=== PATIENT | female | born 1960 | race Caucasian/White ===

== ENCOUNTER 2016-11-28 04:13 | Inpatient (IN) | payer OTHER ==
[~2016-11-28] VITALS: Ht 165.1 cm; Wt 46.2 kg
[2016-11-28 04:21] VITALS: BP 106/65; PULSE 75; RESP 16; TEMP 98.2; O2SAT 98
--- NOTE | 2016-11-28 04:28 | PD ---
HPI Chief Complaint: Psychiatric Symptoms Time Seen by Provider: 04:19 Travel History International Travel<30 days: No Contact w/Intl Traveler<30days: No Traveled to known affect area: No History of Present Illness HPI PT WAS BRAY ACTED BY POLICE AND BROUGHT IN FOR MEDICAL CLEARANCE...PT WAS RUNNING AROUND ON STREETS NAKED AND SCREAMING. PATIENT STATES THAT SHE USED JAYDE BREAD MAN (NAME SHE GAVE WHEN ASKED WHAT DRUG SHE USED) PFSH Past Medical History Immunizations Current: Yes Tetanus Vaccination: Unknown Influenza Vaccination: No Social History Alcohol Use: Yes Tobacco Use: Yes Substance Use: Yes Allergies-Medications (Allergen,Severity, Reaction): Coded Allergies: UNOBTAINABLE (Unverified , 11/28/16) Reported Meds & Prescriptions Reported Meds & Active Scripts Active Active Prescriptions or Reported Medications Unobtainable Review of Systems ROS Limitations: Intoxication, Altered Mental Status Physical Exam Exam Limitations: Intoxication, Altered Mental Status Narrative GENERAL: SKIN: Warm and dry. HEAD: Atraumatic. Normocephalic. EYES: Pupils equal and round. No scleral icterus. No injection or drainage. ENT: No nasal bleeding or discharge. Mucous membranes pink and moist. NECK: Trachea midline. No JVD. CARDIOVASCULAR: Regular rate and rhythm. RESPIRATORY: No accessory muscle use. Clear to auscultation. Breath sounds equal bilaterally. GASTROINTESTINAL: Abdomen soft, non-tender, nondistended. Hepatic and splenic margins not palpable. MUSCULOSKELETAL: Extremities without clubbing, cyanosis, or edema. No obvious deformities. NEUROLOGICAL: Awake and alert. No obvious cranial nerve deficits. Motor grossly within normal limits. Five out of 5 muscle strength in the arms and legs. Normal speech. PSYCHIATRIC: PRESSURED SPEECH, FLIGHT OF IDEAS Data Data Last Documented VS Vital Signs Date Time Temp Pulse Resp B/P Pulse Ox O2 Delivery O2 Flow Rate FiO2 11/28/16 04:21 98.2 75 16 106/65 98 Orders Complete Blood Count With Diff (11/28/16 04:20) Comprehensive Metabolic Panel (11/28/16 04:20) Thyroid Stimulating Hormone (11/28/16 04:20) Urinalysis - C+S If Indicated (11/28/16 04:20) Ed Urine Pregnancytest Poc (11/28/16 04:20) Psych Screen (11/28/16 04:20) Drug Screen, Random Urine (11/28/16 04:20) Alcohol (Ethanol) (11/28/16 04:20) Salicylates (Aspirin) (11/28/16 04:20) Tylenol (Acetaminophen) (11/28/16 04:20) Urine Culture (11/28/16 04:30) Labs Laboratory Tests Test 11/28/16 04:30 White Blood Count 4.6 TH/MM3 Red Blood Count 3.96 MIL/MM3 Hemoglobin 11.9 GM/DL Hematocrit 35.3 % Mean Corpuscular Volume 89.1 FL Mean Corpuscular Hemoglobin 30.2 PG Mean Corpuscular Hemoglobin 33.8 % Concent Red Cell Distribution Width 13.5 % Platelet Count 343 TH/MM3 Mean Platelet Volume 7.7 FL Neutrophils (%) (Auto) 52.4 % Lymphocytes (%) (Auto) 34.8 % Monocytes (%) (Auto) 7.6 % Eosinophils (%) (Auto) 4.5 % Basophils (%) (Auto) 0.7 % Neutrophils # (Auto) 2.4 TH/MM3 Lymphocytes # (Auto) 1.6 TH/MM3 Monocytes # (Auto) 0.4 TH/MM3 Eosinophils # (Auto) 0.2 TH/MM3 Basophils # (Auto) 0.0 TH/MM3 CBC Comment DIFF FINAL Differential Comment Urine Color LIGHT-YELLOW Urine Turbidity CLEAR Urine pH 6.0 Urine Specific [place] 1.007 Urine Protein NEG mg/dL Urine Glucose (UA) NEG mg/dL Urine Ketones NEG mg/dL Urine Occult Blood NEG Urine Nitrite NEG Urine Bilirubin NEG Urine Urobilinogen LESS THAN 2.0 MG/DL Urine Leukocyte Esterase MOD Urine WBC 9 /hpf Urine Transitional Epithelial <1 /hpf Cells Microscopic Urinalysis Comment CULTURE INDICATED Sodium Level 142 MEQ/L Potassium Level 3.5 MEQ/L Chloride Level 107 MEQ/L Carbon Dioxide Level 27.2 MEQ/L Anion Gap 8 MEQ/L Blood Urea Nitrogen 18 MG/DL Creatinine 1.21 MG/DL Estimat Glomerular Filtration 38 ML/MIN Rate Random Glucose 94 MG/DL Calcium Level 9.2 MG/DL Total Bilirubin 0.5 MG/DL Aspartate Amino Transf 35 U/L (AST/SGOT) Alanine Aminotransferase 42 U/L (ALT/SGPT) Alkaline Phosphatase 69 U/L Total Protein 7.8 GM/DL Albumin 3.8 GM/DL Thyroid Stimulating Hormone 88.100 uIU/ML 3rd Gen Salicylates Level 2.3 MG/DL Urine Opiates Screen NEG Acetaminophen Level LESS THAN 2.0 MCG/ML Urine Barbiturates Screen NEG Urine Amphetamines Screen NEG Urine Benzodiazepines Screen NEG Urine Cocaine Screen POS Urine Cannabinoids Screen POS Ethyl Alcohol Level LESS THAN 3 MG/DL MDM Medical Decision Making Medical Screen Exam Complete: Yes Emergency Medical Condition: Yes Medical Record Reviewed: Yes Differential Diagnosis HYPOGLYCEMIA V ELECTROLYTE ABNL V LIVER DZ V DRUG INTOX Narrative Course PATIENT WAS ACTING ERRATICALLY DUE TO COCAINE ABUSE, TODAY SHE WAS ALSO FOUND TO HAVE A UTI WELL AN ABNL TSH SCREENING TESTS SO SHE WILL NEED FORMAL OUTPATIENT CONFIRMATORY TESTING AT A LATER TIME. Diagnosis Primary Impression: Medical clearance for psychiatric admission Additional Impressions: UTI COCAINE ABUSE SUSPECTED HYPOTHYROIDISM Additional Instructions: AFTER YOU GET SEEN BY PSYCHIATRIST, MAKE APPOINTMENT WITH YOUR PRIMARY CARE DOCTOR TO FURTHER EVALUATE YOUR THYROID AN OUTPATIENT Scripts Unable to Obtain Active Prescriptions or Reported Meds Condition: Jay Guillen MD Nov 28, 2016 04:28
[2016-11-28 04:38] LABS: AUTOMATED NEUTROPHIL # 2.4 TH/MM3 (1.8-7.7); BASOPHIL % 0.7 % (0.0-2.0); EOSINOPHIL # 0.2 TH/MM3 (0-0.4); EOSINOPHIL % 4.5 % (0.0-4.0); HEMATOCRIT 35.3 % (35.0-46.0); HEMO FLAGS DIFF FINAL; LYMPH % 34.8 % (9.0-44.0); LYMPHOCYTE # 1.6 TH/MM3 (1.0-4.8); MEAN CELL VOLUME 89.1 FL (80.0-100.0); MEAN CORPUSCULAR HEMOGLOBIN 30.2 PG (27.0-34.0); MEAN CORPUSCULAR HGB CONC 33.8 % (32.0-36.0); MONO % 7.6 % (0.0-8.0); NEUT % 52.4 % (16.0-70.0); PLATELET COUNT 343 TH/MM3 (150-450); RED BLOOD COUNT 3.96 MIL/MM3 (4.00-5.30); RED CELL DISTRIBUTION WIDTH 13.5 % (11.6-17.2); WHITE BLOOD COUNT 4.6 TH/MM3 (4.0-11.0)
[2016-11-28 04:43] LABS: BLOOD, URINE NEG (NEG); GLUCOSE,URINE NEG (NEG); KETONE, URINE NEG (NEG); NITRITE,URINE NEG (NEG); TRANSITIONAL EPI CELLS, URINE <1 /hpf; URINE COLOR LIGHT-YELLOW (YELLW/STRAW)
[2016-11-28 04:46] LABS: AMPHETAMINE, URINE NEG (NEG); BARBITURATES, URINE NEG (NEG); COCAINE, URINE POS (NEG)
[2016-11-28 04:54] LABS: COMMENT (UR) CULTURE INDICATED; CULTURE IF INDICATED CULTURE INDICATED
[2016-11-28 05:05] LABS: ALT (GPT) 42 U/L (10-53); ANION GAP 8 MEQ/L (5-15); AST (GOT) 35 U/L (15-37); BICARBONATE 27.2 MEQ/L (21.0-32.0); BLOOD UREA NITROGEN 18 MG/DL (7-18); CHLORIDE 107 MEQ/L (98-107); GLOMERULAR FILTRATION RATE 38 ML/MIN (>89); POTASSIUM 3.5 MEQ/L (3.5-5.1); SODIUM (NA) 142 MEQ/L (136-145)
[2016-11-28 05:15] LABS: ALKALINE PHOSPHATASE 69 U/L (45-117); TOTAL BILIRUBIN ADULT 0.5 MG/DL (0.2-1.0)
[2016-11-28 05:16] LABS: ACETAMINOPHEN LESS THAN 2.0 MCG/ML (10.0-30.0)
[2016-11-28] MEDS ORDERED: LIDOCAINE HCL 1% PF 30 ML VIAL XX ONE (05:30)
[2016-11-28 06:38] VITALS: BP 127/62; PULSE 66; RESP 18
[2016-11-28 10:16] VITALS: BP 108/68; PULSE 80; RESP 18; O2SAT 98
[2016-11-28] MEDS ORDERED: ZIPRASIDONE MESYLATE 20 MG VIAL IM PRN ×3 (12:00→13:30)
[2016-11-28] MEDS ORDERED: diphenhydrAMINE HCL 50 MG/ML VIAL IM ONE (12:15)
[2016-11-28 13:00] VITALS: BP 131/69; PULSE 66; RESP 16; TEMP 98.6; O2SAT 98
[2016-11-28] MEDS ORDERED: LORazepam 2 MG/ML VIAL IM ONE (13:00)
[2016-11-28] MEDS ORDERED: LORazepam 0.5 MG TAB PO PRN (13:45)
[2016-11-28] MEDS ORDERED: diphenhydrAMINE HCL 50 MG/ML VIAL IM PRN (13:45)
[2016-11-28] MEDS ORDERED: ALUMINUM/MAGNESIUM/SIMETH 30 ML CUP PO PRN (13:45)
[2016-11-28] MEDS ORDERED: MAGNESIUM HYDROXIDE SUSP 30 ML CUP PO PRN (13:45)
[2016-11-28] MEDS ORDERED: ACETAMINOPHEN 325 MG TAB PO PRN (13:45)
[2016-11-28] MEDS ORDERED: LORazepam 2 MG/ML VIAL IM PRN ×2 (13:45)
[2016-11-28] MEDS ORDERED: TOFR50TA PO (13:48)
[2016-11-28] MEDS ORDERED: HYDR100C PO (13:48)
[2016-11-28] MEDS ORDERED: PERP2TAB18 PO (13:49)
[2016-11-28] MEDS ORDERED: LEVOTHYROXINE SODIUM 100 MCG TAB PO ONE (18:15)
[2016-11-28 18:25] VITALS: BP 118/56; PULSE 56; RESP 17; TEMP 97.6; O2SAT 98
[2016-11-28 18:54] LABS: FREE T3 1.86 PG/ML (2.18-3.98); FREE T4 0.7 NG/DL (0.76-1.46)
[2016-11-29] MEDS ORDERED: LORazepam 2 MG/ML VIAL IM ONE ×2 (01:10→11:00)
[2016-11-29] MEDS ORDERED: diphenhydrAMINE HCL 50 MG/ML VIAL IM ONE ×2 (01:10→11:00)
[2016-11-29] MEDS ORDERED: LORazepam 2 MG/ML VIAL ONE ×2 (01:10→10:02)
[2016-11-29] MEDS ORDERED: ZIPRASIDONE MESYLATE 20 MG VIAL IM ONE ×2 (01:10→01:12)
[2016-11-29] MEDS ORDERED: diphenhydrAMINE HCL 50 MG/ML VIAL ONE ×2 (01:11→10:02)
[2016-11-29 02:11] VITALS: BP 118/56; PULSE 56; RESP 17; TEMP 97.6; O2SAT 98
[2016-11-29 05:46] VITALS: BP 115/77; PULSE 54; RESP 16; TEMP 97.2; O2SAT 96
[2016-11-29] MEDS ORDERED: LEVOTHYROXINE SODIUM 100 MCG TAB PO SCH (06:00)
[2016-11-29] MEDS ORDERED: HALOPERIDOL LACTATE 5 MG/ML AMP ONE (10:02)
[2016-11-29] MEDS ORDERED: HALOPERIDOL LACTATE 5 MG/ML AMP IM ONE (11:00)
--- NOTE | 2016-11-29 11:54 | PD.CONS ---
HPI Service [facility] Consult Requested By Psychiatry team Reason for Consult Hypothyroidism Primary Care Physician Unknown Diagnoses: History of Present Illness Written by Julia Lugo, acting as scribe for Dr. Chairez on 11/29/16 at 11:36. This note was transcribed by viji HUMPHREY. I, Dr. Corrie Chairez personally performed the history, physical exam, and medical decision making; and confirmed the accuracy of the information in the transcribed note. Authenticated by Dr. Corrie Chairez on 11/29/16 at 11:36. Per review of records, Patient is a female who came in as a [place] act by police secondary to she was running around on the streets naked and screaming and states she use gingerbread man when asked what drug she used. Patient was found to be acting erratically due to cocaine abuse and reported to have urinary tract infection and abnormal TSH. Recommended to have a formal outpatient confirmatory testing for her TSH. She is now admitted to inpatient psychiatry unit for further evaluation. We are consulted for medical management. Patient seen and examined today. She reports her real name is "Nella Medellin", she is 55 years old, her date of is 03/22/1961. Then patient started to scream and cry stating "my house is can he get vandalized because I wrote a letter regarding drugs, noted in the common in search my house and vandalize it." She reports that she has hypothyroidism in that she is taking levothyroxine 1.37 milligrams, she said she was out of it for 3 weeks and just started to be back on it for 3 days. She also states that she might have some diabetes because she has yeast infection all the time and on her records of adoption states that her family members have diabetes as well. Patient admits to marijuana use daily. She states "I am suicidal and marijuana helps me every day, my boyfriend would slip a joint next to me so that in the morning I can smoke it. If I cannot smoke marijuana I wanted to kill myself or kill others." She also admits to taking Xanax when she cannot sleep at night. Patient would alternate the scream and cry. Review of Systems ROS Limitations: Psychotic Past Family Social History Allergies: Coded Allergies: No Known Allergies (Unverified , 11/28/16) Per [facility] RN [phone]. Past Medical History Hypothyroidism Past Surgical History Stomach surgery 3 Reported Medications Levothyroxine 137 g daily Active Ordered Medications Current Medications Medications (Trade) Dose Ordered Sig/Myles Route Start Time Stop Time Status Last Admin (Ativan) 1 mg Q6H PRN PO 11/28/16 13:45 Hold (Ativan Inj) 1 mg Q6H PRN IM 11/28/16 13:45 Hold (Benadryl) 50 mg Q6H PRN PO 11/28/16 13:45 Hold (Benadryl Inj) 50 mg Q6H PRN IM 11/28/16 13:45 Hold (Tylenol) 650 mg Q4H PRN PO 11/28/16 13:45 (Milk Of Magnesia Liq) 30 ml DAILY PRN PO 11/28/16 13:45 (Mag-Al Plus Susp Liq) 30 ml Q6H PRN PO 11/28/16 13:45 (Desyrel) 50 mg HS PRN PO 11/28/16 21:00 Hold (Atarax) 50 mg Q6H PRN PO 11/28/16 13:45 Hold (Synthroid) 100 mcg DAILY@0600 PO 11/29/16 06:00 11/29/16 05:41 Family History She is adopted, but showed in her records that she has family members with diabetes Social History Denies alcohol use Smokes 1 pack per day Admits to marijuana use daily, denies any illicit drug use but was positive for cocaine in her U tox screen Physical Exam Vital Signs Vital Signs Date Time Temp Pulse Resp B/P Pulse Ox O2 Delivery O2 Flow Rate FiO2 11/29/16 05:46 97.2 54 16 115/77 96 11/29/16 02:11 97.6 56 17 118/56 98 11/28/16 18:25 97.6 56 17 118/56 98 11/28/16 13:00 98.6 66 16 131/69 98 Room Air Physical Exam GENERAL: This is a thinly appearing, disheveled, well-developed patient, in no apparent distress. SKIN: No rashes, ecchymoses or lesions. Cool and dry. HEAD: Atraumatic. Normocephalic. No temporal or scalp tenderness. EYES: Pupils equal round and reactive. Extraocular motions intact. No scleral icterus. No injection or drainage. ENT: Nose without bleeding. Throat without erythema. Uvula midline. Airway patent. NECK: Trachea midline. No JVD or lymphadenopathy. Supple, nontender, no meningeal signs. CARDIOVASCULAR: Regular rate and rhythm without murmurs, gallops, or rubs. RESPIRATORY: Clear to auscultation. Breath sounds equal bilaterally. No wheezes , rales, or rhonchi. GASTROINTESTINAL: Abdomen soft, non-tender, nondistended. Bowel sounds active 4. MUSCULOSKELETAL: Extremities without clubbing, cyanosis, or edema. No joint tenderness, effusion, or edema noted. NEUROLOGICAL: Awake and alert. Psychosis present. Oriented to self, place. Motor and sensory grossly within normal limits. Pressured speech. Laboratory Date/Time Procedure Status Source Growth 11/28/16 04:30 Urine Culture - Preliminary Resulted Urine Clean Catch NO GROWTH IN 24 HOURS. Result Diagram: 11/28/1642911/28/16429 Assessment and Plan Problem List: (1) Hypothyroidism ICD Code: E03.9 Status: Acute Assessment and Plan Per review of records, Patient is a female who came in as a [place] act by police secondary to she was running around on the streets naked and screaming and states she use gingerbread man when asked what drug she used. Patient was found to be acting erratically due to cocaine abuse and reported to have urinary tract infection and abnormal TSH. Recommended to have a formal outpatient confirmatory testing for her TSH. She is now admitted to inpatient psychiatry unit for further evaluation. We are consulted for medical management. Psychosis - Managed by psychiatry team Hypothyroidism - Patient reports she missed taking her medication levothyroxine 3 weeks and just restarted for 3 days - TSH result 88.1, free T4 0.70, free T3 1 0.86 - Monitor for myxedema coma, trend HR and BP - Patient was given by mouth levothyroxine yesterday 100 g and started on 100 g daily - Increased dose of levothyroxine to 137 g daily - Recheck TSH today, check CBC, CMP Family history of diabetes - Check hemoglobin A1c Urinary tract infection - Moderate leukoesterase - It was given a dose of Rocephin in the ED Acute kidney injury, versus CKD - Unknown baseline - Encourage by mouth fluid hydration - Avoid nephrotoxins - Recheck BMP DVT prop early ambulation Thank you for this consultation. We will follow patient with you. Code Status Full code Discussed Condition With Patient, nursing Julia Navarro Nov 29, 2016 11:54 Corrie Chairez MD Nov 29, 2016 12:41
--- NOTE | 2016-11-29 13:09 | HHI.HP ---
Provisional Diagnosis Admission Date Nov 28, 2016 at 13:37 [place] I. Schizoaffective disorder, bipolar type Certification of Person's Competence To Provide Express and Informed Consent I have personally examined Amira Jose , a person being served at [facility] on, Nov 29, 2016 13:07. Express and informed consent means consent voluntarily given in writing, by a competent person, after sufficient explanation and disclosure of the subject matter involved to enable the person to make a knowing and willful decision without any element of force, fraud, deceit, duress, or other form of constraint or coercion. This person is 18 years of age or older, is not now known to be incompetent to consent to treatment with a guardian advocate, and does not have a health care surrogate or proxy currently making medical treatment decisions. I have found this person to be one of the following: [] Competent to provide express and informed consent, as defined above, for voluntary admission to this facility and is competent to provide express and informed consent for treatment. He/she has the consistent capacity to make well reasoned, willful, and knowing decisions concerning his or her medical or mental health treatment. The person fully and consistently understands the purpose of the admission for examination/placement and is fully capable of personally exercising all rights assured [place] [X] Incompetent to provide express and informed consent to voluntary admission, and this is incompetent to provide express and informed consent to treatment. The person must be transferred to involuntary status and a petition for a guardian advocate filed with the Circuit Court. [] Refusing to provide express and informed consent to voluntary admission but is competent to provide express and informed consent for treatment. The person must be discharged or transferred to involuntary status. Form shall be completed within 24 hours of a person's arrival at the receiving facility and filed in the clinical record of each person: 1. Admitted on a voluntary basis 2. Permitted to provide express and informed consent to his/her own treatment 3. Allowed to transfer from involuntary to voluntary status 4. Prior to permitting a person to consent to his or her own treatment after having been previously found incompetent to consent to treatment. History of Present Illness Capacity: Lacks Capacity HPI Patient evaluated by this physician yesterday. She is grossly psychotic, disorganized, easily and highly agitated, uncooperative and demonstrating severe loose associations. She apparently left her home in the middle of the night, naked. She is paranoid that others are attempting to nikki her and persecute her in her neighborhood. At this time, the patient is being admitted because she is physically and verbally threatening to this physician. She is nonsensical in her speech because her loose associations are so severe. She is making very poor choices by leaving her house naked. She is an extremely poor historian but apparently she is noncompliant with medications prescribed to her by [facility]. Review of Systems Except as stated in HPI: all other systems reviewed are Neg Past Psych History Psychological trauma history Unknown regarding trauma. Patient has been admitted as a psychiatric inpatient and treated as an outpatient Violence risk - others (6 mos) Moderate to high Violence risk - self (6 mos) Moderate to high Substance Abuse History Drugs/Alcohol past 12 months Patient reports using tomasa trGogiroet's, a hallucinogenic flower. Past Family Social History Coded Allergies: No Known Allergies (Unverified , 11/28/16) Per [facility] RN [phone]. Reported Medications Buspirone 30 Mg Tab30 Mg PO BID Ref 0 11/30/16 Perphenazine 2 Mg Tab4 Mg PO Q12HR #60 TAB Ref 0 11/28/16 Hydroxyzine Pamoate 100 Mg [id number] Mg PO TID Ref 0 11/28/16 Imipramine HCL (Tofranil)50 Mg Tab75 Mg PO HS Ref 0 11/28/16 Current Medications Medications (Trade) Dose Ordered Sig/Myles Route Start Time Stop Time Status Last Admin (Ativan) 1 mg Q6H PRN PO 11/28/16 13:45 Hold (Ativan Inj) 1 mg Q6H PRN IM 11/28/16 13:45 Hold (Benadryl) 50 mg Q6H PRN PO 11/28/16 13:45 Hold (Benadryl Inj) 50 mg Q6H PRN IM 11/28/16 13:45 Hold (Tylenol) 650 mg Q4H PRN PO 11/28/16 13:45 (Milk Of Magnesia Liq) 30 ml DAILY PRN PO 11/28/16 13:45 (Mag-Al Plus Susp Liq) 30 ml Q6H PRN PO 11/28/16 13:45 (Desyrel) 50 mg HS PRN PO 11/28/16 21:00 Hold (Atarax) 50 mg Q6H PRN PO 11/28/16 13:45 Hold (Synthroid) 112 mcg DAILY@0600 PO 11/30/16 06:00 (Synthroid) 25 mcg DAILY@0600 PO 11/30/16 06:00 Family History Unknown. Patient refuses. Social History Patient unemployed. Receives Social Security disability. Apparently has history of noncompliance with medicine and history of using illicit drugs. Patient's Strengths (min. 2) Resilient and has access to healthcare. Physical Exam GENERAL: SKIN: Warm and dry. HEAD: Normocephalic. EYES: No scleral icterus. No injection or drainage. NECK: Supple, trachea midline. No JVD or lymphadenopathy. CARDIOVASCULAR: Regular rate and rhythm without murmurs, gallops, or rubs. RESPIRATORY: Breath sounds equal bilaterally. No accessory muscle use. GASTROINTESTINAL: Abdomen soft, non-tender, nondistended. MUSCULOSKELETAL: No cyanosis, or edema. BACK: Nontender without obvious deformity. No CVA tenderness. Vital Signs Vital Signs Date Time Temp Pulse Resp B/P Pulse Ox O2 Delivery O2 Flow Rate FiO2 11/29/16 05:46 97.2 54 16 115/77 96 11/28/16 13:00 Room Air Mental Status Examination Speech: Incoherent Orientation: Person Memory: Impaired (describe) Thought Process: Loose Association Thought Content: Bizarre thinking, Paranoid Hallucination Type: Auditory Attention and Concentration: Easily Distracted Suicidal Ideation: No Previous Suicide Attempts: No Homicidal Ideation: No Previous Homicide Attempts: No Insight: Poor Judgment: Poor Affect: Irritable Affect if Inappropriate: Labile Mood: Angry Motor Activity: Normal gait Assessment & Plan Problem List: (1) Schizoaffective disorder, bipolar type ICD Code: F25.0 Assessment & Plan Estimated LOS: days patient is grossly psychotic, highly agitated, attempting to disrobe, threatening this physician with physical violence, pounding on the lozano and door in the emergency department, requiring chemical restraint. At this time she is being admitted for evaluation and treatment. Apparently she has a history of schizoaffective disorder and noncompliance with medicine. This physician will order a CBC and comprehensive metabolic profile to ensure there is no infectious process or metabolic process causing or contributing to her decompensation. She will also have her thyroid checked to evaluate if hypo- or hyperthyroidism is causing or contribute into her psychosis. Likewise, biting and B-12 and D will be checked to ensure no vitamin deficiency is causing or contributing to her psychosis. She will receive an EKG to ensure she can tolerate and I psychotic medicine without causing a conduction defect in her heart. This physician spoke with the patient's nurse regarding her recent behavior. This physician will also ask the elevator attendant to obtain as much information from family or [facility] as is possible. Plan to start patient back on antipsychotic medicine. Ryder Omalley MD Nov 29, 2016 13:09
[2016-11-29 17:54] VITALS: BP 124/73; PULSE 61; RESP 18; TEMP 96.7; O2SAT 96
[2016-11-30 05:34] VITALS: BP 142/66; PULSE 67; RESP 16; TEMP 97.4; O2SAT 98
[2016-11-30] MEDS: LEVOTHYROXINE SODIUM 112 MCG TAB PO SCH (05:39)
[2016-11-30] MEDS: LEVOTHYROXINE SODIUM 25 MCG TAB PO SCH (05:39)
[2016-11-30] MEDS ORDERED: LEVOTHYROXINE SODIUM 100 MCG TAB PO SCH (06:00)
[2016-11-30 11:26] LABS: AUTOMATED NEUTROPHIL # 2.9 TH/MM3 (1.8-7.7); BASOPHIL % 0.8 % (0.0-2.0); EOSINOPHIL # 0.1 TH/MM3 (0-0.4); EOSINOPHIL % 2.8 % (0.0-4.0); HEMATOCRIT 42.5 % (35.0-46.0); HEMO FLAGS DIFF FINAL; LYMPH % 31.9 % (9.0-44.0); LYMPHOCYTE # 1.6 TH/MM3 (1.0-4.8); MEAN CELL VOLUME 90.2 FL (80.0-100.0); MEAN CORPUSCULAR HEMOGLOBIN 30.3 PG (27.0-34.0); MEAN CORPUSCULAR HGB CONC 33.6 % (32.0-36.0); NEUT % 57.5 % (16.0-70.0); PLATELET COUNT 347 TH/MM3 (150-450); RED BLOOD COUNT 4.72 MIL/MM3 (4.00-5.30); RED CELL DISTRIBUTION WIDTH 14.1 % (11.6-17.2); WHITE BLOOD COUNT 5.1 TH/MM3 (4.0-11.0)
[2016-11-30 11:48] LABS: ANION GAP 7 MEQ/L (5-15); AST (GOT) 59 U/L (15-37); BICARBONATE 24.8 MEQ/L (21.0-32.0); BLOOD UREA NITROGEN 20 MG/DL (7-18); CHLORIDE 107 MEQ/L (98-107); GLOMERULAR FILTRATION RATE 50 ML/MIN (>89); POTASSIUM 3.8 MEQ/L (3.5-5.1); SODIUM (NA) 139 MEQ/L (136-145)
[2016-11-30 11:49] LABS: ALT (GPT) 44 U/L (10-53)
[2016-11-30 12:15] LABS: ALKALINE PHOSPHATASE 76 U/L (45-117); CREATINE KINASE 870 U/L (26-192); HDL CHOLESTEROL 74.3 MG/DL (40.0-60.0); LDL CHOLESTEROL 76 MG/DL (0-99); TOTAL BILIRUBIN ADULT 0.6 MG/DL (0.2-1.0)
[2016-11-30 12:28] LABS: CKMB 6.2 NG/ML (0.5-3.6)
[2016-11-30 13:12] LABS: HEMOGLOBIN A1b 1.5 %; HEMOGLOBIN Ao 85.6 %; HEMOGLOBIN P3 3.7 %
[2016-11-30] MEDS ORDERED: BUSP30TA PO (15:11)
--- NOTE | 2016-11-30 15:17 | HHI.PYPN ---
Subjective Remarks Is a request for second opinion. Patient was seen and admission note reviewed. Case discussed with nursing. Some provided a medication list with psychotropic medications including imipramine, Vistaril, BuSpar. Nursing spoke with son believes patient has bipolar and patient also states history of bipolar. States she has been on mood stabilizer in the past but they all "don' t work." She is thin and admits to polysubstance abuse so bipolar diagnosis is difficult. Admits to cocaine and meth and marijuana. Denies alcohol. Patient is thin and disheveled. Is unclear if she was actually getting robbed or not given her company of drug users. She denies auditory visual hallucinations. Mood is labile. Focused on discharge. Medicine saw her for thyroid disorder and after their visits labs came back with an elevated CK Objective Alert: Yes [place]: Person, Place Mood: Anxious Affect: Labile Memory Intact: Immediate (not tested) Hallucinations: Auditory (denies) Delusions: No Delusion Type: Paranoid (possible delusion that she was robbed, unable to verify) Suicidal: Ideation (denies) Homicidal: Ideation (denies) Insight/Judgment Poor Labs Test 11/30/16 10:54 White Blood Count 5.1 TH/MM3 Red Blood Count 4.72 MIL/MM3 Hemoglobin 14.3 GM/DL Hematocrit 42.5 % Mean Corpuscular Volume 90.2 FL Mean Corpuscular Hemoglobin 30.3 PG Mean Corpuscular Hemoglobin 33.6 % Concent Red Cell Distribution Width 14.1 % Platelet Count 347 TH/MM3 Mean Platelet Volume 7.9 FL Neutrophils (%) (Auto) 57.5 % Lymphocytes (%) (Auto) 31.9 % Monocytes (%) (Auto) 7.0 % Eosinophils (%) (Auto) 2.8 % Basophils (%) (Auto) 0.8 % Neutrophils # (Auto) 2.9 TH/MM3 Lymphocytes # (Auto) 1.6 TH/MM3 Monocytes # (Auto) 0.4 TH/MM3 Eosinophils # (Auto) 0.1 TH/MM3 Basophils # (Auto) 0.0 TH/MM3 CBC Comment DIFF FINAL Differential Comment Sodium Level 139 MEQ/L Potassium Level 3.8 MEQ/L Chloride Level 107 MEQ/L Carbon Dioxide Level 24.8 MEQ/L Anion Gap 7 MEQ/L Blood Urea Nitrogen 20 MG/DL Creatinine 0.97 MG/DL Estimat Glomerular Filtration 50 ML/MIN Rate Random Glucose 91 MG/DL Hemoglobin A1c 5.7 % Calcium Level 9.0 MG/DL Total Bilirubin 0.6 MG/DL Aspartate Amino Transf 59 U/L (AST/SGOT) Alanine Aminotransferase 44 U/L (ALT/SGPT) Alkaline Phosphatase 76 U/L Total Creatine Kinase 870 U/L Creatine Kinase MB 6.2 NG/ML Creatine Kinase MB % 0.7 % Total Protein 7.9 GM/DL Albumin 3.7 GM/DL Triglycerides Level 123 MG/DL Cholesterol Level 175 MG/DL LDL Cholesterol 76 MG/DL HDL Cholesterol 74.3 MG/DL Cholesterol/HDL Ratio 2.35 RATIO Vitamin B12 Level 656 PG/ML 25-Hydroxy Vitamin D Total 30.3 ng/ML Thyroid Stimulating Hormone 62.200 uIU/ML 3rd Gen Date/Time Procedure Status Source Growth 11/28/16 04:30 Urine Culture - Final Complete Urine Clean Catch NO GROWTH IN 48 HOURS. 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 I agree with the first opinion to continue petition. Criteria include paranoid and disorganized behavior Justification for Cont. Inpt. Patient will decompensate in a less restrictive setting Ash Mathis DO Nov 30, 2016 15:17
[2016-11-30 17:59] LABS: BLOOD, URINE NEG (NEG); COMMENT (UR) CULTURE INDICATED; CULTURE IF INDICATED CULTURE INDICATED; GLUCOSE,URINE NEG (NEG); KETONE, URINE NEG (NEG); NITRITE,URINE NEG (NEG); SQUAMOUS EPITHELIAL CELL URINE 3 /hpf (0-5); URINE COLOR YELLOW (YELLW/STRAW)
[2016-11-30 18:10] VITALS: BP 121/80; PULSE 69; RESP 17; TEMP 96.7; O2SAT 99
[2016-12-01 05:53] VITALS: BP 160/90; PULSE 56; RESP 17; TEMP 97.8; O2SAT 98
[2016-12-01] MEDS: LEVOTHYROXINE SODIUM 112 MCG TAB PO SCH (06:18)
[2016-12-01] MEDS: LEVOTHYROXINE SODIUM 25 MCG TAB PO SCH (06:18)
[2016-12-01 08:40] VITALS: BP 140/91; PULSE 74; RESP 16; O2SAT 99
--- NOTE | 2016-12-01 12:18 | HHI.PYPN ---
Subjective Remarks Patient still psychotic and internally preoccupied. She remains paranoid with delusions of persecution at her apartment complex. She shows poor judgment and impaired insight. Spoke with the nurse regarding her recent behavior, which is at least more calm than it was. Review of Systems Except as stated in HPI: all other systems reviewed are Neg Objective Alert: Yes [place]: Person, Place Mood: Anxious Affect: Labile Memory Intact: Immediate (not tested) Hallucinations: Auditory (denies) Delusions: No Delusion Type: Paranoid (possible delusion that she was robbed, unable to verify) Suicidal: Ideation (denies) Homicidal: Ideation (denies) Insight/Judgment Impaired Labs Test 11/30/16 17:10 Urine Color YELLOW Urine Turbidity CLOUDY Urine pH 7.0 Urine Specific [place] 1.020 Urine Protein TRACE mg/dL Urine Glucose (UA) NEG mg/dL Urine Ketones NEG mg/dL Urine Occult Blood NEG Urine Nitrite NEG Urine Bilirubin NEG Urine Urobilinogen LESS THAN 2.0 MG/DL Urine Leukocyte Esterase LARGE Urine RBC 4 /hpf Urine WBC 18 /hpf Urine Squamous Epithelial 3 /hpf Cells Urine Amorphous Sediment OCC Microscopic Urinalysis Comment CULTURE INDICATED Date/Time Procedure Status Source Growth 11/30/16 17:10 Urine Culture Received Urine Clean Catch Pending 11/28/16 04:30 Urine Culture - Final Complete Urine Clean Catch NO GROWTH IN 48 HOURS. Vitals/IOs Vital Signs Date Time Temp Pulse Resp B/P Pulse Ox O2 Delivery O2 Flow Rate FiO2 12/01/16 08:40 74 16 140/91 99 12/01/16 05:53 97.8 11/28/16 13:00 Room Air Assessment & Plan Problem List: (1) Schizoaffective disorder, bipolar type ICD Code: F25.0 Assessment & Plan Estimated LOS: days will reassess antipsychotic and mood stabilizing medication. Patient has been noncompliant with medicine and this is a primary cause of her decompensation. Will restart medication as necessary and titrate to therapeutic dose. Justification for Cont. Inpt. Likely to decompensate at lower level of care. Ryder Omalley MD Dec 01, 2016 12:18
[2016-12-01] MEDS: LORazepam 1 MG TAB PO PRN ×2 (12:50→20:57)
[2016-12-01] MEDS: diphenhydrAMINE HCL 50 MG CAP PO PRN (12:50)
--- NOTE | 2016-12-01 15:51 | HHI.PR ---
Subjective Remarks Follow-up visit hypothyroidism - myexedema coma, acute kidney injury, substance abuse. Patient seen and examined today. Reports she is doing well. More coherent than previously seen. Patient is able to complete sentences and able to respond to any questions and commands. States she has hypothyroidism and has been compliant with taking her medications on top of other vitamins that she takes at home. She states that she took substance known as tomasa trumpet and started to hallucinate after that. States she doesn't remember anything that happened with her. Today, she states she is feeling well and that she is going home tomorrow. Denies pain and discomfort. Denies SOB/ dyspnea. Denies chest pain, palpitations, headaches, dizziness. Denies fevers, chills, n/v/d. Denies hematuria, dysuria. Objective Vitals Vital Signs Date Time Temp Pulse Resp B/P Pulse Ox O2 Delivery O2 Flow Rate FiO2 12/01/16 08:40 74 16 140/91 99 12/01/16 05:53 97.8 56 17 160/90 98 11/30/16 18:10 96.7 69 17 121/80 99 Result Diagram: 11/30/16 1054 11/30/16 1054 Objective Remarks GENERAL: This is a thin appearing, well-developed patient, in no apparent distress. SKIN: Warm and dry. HEENT: Normocephalic. Pupils equal round and reactive. Nose without bleeding. Airway patent. NECK: Trachea midline. No JVD. Supple. CARDIOVASCULAR: Regular rate and rhythm without murmurs, gallops, or rubs. RESPIRATORY: Clear to auscultation. Breath sounds equal bilaterally. No wheezes , rales, or rhonchi. GASTROINTESTINAL: Abdomen soft, non-tender, nondistended. Bowel Sounds normoactive x4. MUSCULOSKELETAL: Extremities without clubbing, cyanosis, or edema. NEUROLOGICAL: Awake and alert. Oriented to place, person. No focal neuro deficit. Moves all extremities. Normal speech. A/P Problem List: (1) Hypothyroidism ICD Code: E03.9 Status: Acute Assessment and Plan Per review of records, Patient is a female who came in as a [place] act by police secondary to she was running around on the streets naked and screaming and states she use gingerbread man when asked what drug she used. Patient was found to be acting erratically due to cocaine abuse and reported to have urinary tract infection and abnormal TSH. Recommended to have a formal outpatient confirmatory testing for her TSH. She is now admitted to inpatient psychiatry unit for further evaluation. We are consulted for medical management. Psychosis - Managed by psychiatry team Hypothyroidism - Patient reports she missed taking her medication levothyroxine 3 weeks and just restarted for 3 days - TSH result 88.1, free T4 0.70, free T3 1 0.86 - Monitor for myxedema coma, trend HR and BP - Patient was given by mouth levothyroxine yesterday 100 g and given 100 g - On levothyroxine to 137 g daily - Discussed with patient importance of compliance with medication use especially her thyroid medication. She is to continue her dose and be checked by her PCP/ [facility] medicine for TSH level in 4-6 weeks for any adjustments. Family history of diabetes - Hemoglobin A1c 5.7 Urinary tract infection - UA Moderate leukoesterase - urine culture no growth in 48 hours - It was given a dose of Rocephin in the ED Acute kidney injury, versus CKD - Unknown baseline - Encourage by mouth fluid hydration - Avoid nephrotoxins - Improved DVT prop early ambulation Full code Discussed with patient, nursing, Dr. Derik Cedillo from Hospitalist standpoint. We will sign off. Reconsult as needed. Julia Navarro Dec 01, 2016 15:51
[2016-12-01 18:26] VITALS: BP 119/78; PULSE 76; RESP 18; TEMP 98; O2SAT 99
[2016-12-01] MEDS: ARIPiprazole 5 MG TAB PO SCH (20:57)
[2016-12-01] MEDS: traZODone HCL 50 MG TAB PO PRN (23:53)
[2016-12-01] MEDS: hydrOXYzine HCL 50 MG TAB PO PRN (23:53)
[2016-12-02 06:12] VITALS: BP 114/66; PULSE 57; RESP 18; TEMP 97.1
[2016-12-02] MEDS: LEVOTHYROXINE SODIUM 25 MCG TAB PO SCH (06:31)
[2016-12-02] MEDS: LEVOTHYROXINE SODIUM 112 MCG TAB PO SCH (06:31)
--- NOTE | 2016-12-02 12:55 | HHI.PYPN ---
Subjective Remarks Continues to demonstrate loose associations, flight of ideas, paranoid delusions and easily agitated. Case discussed with nurse and chart reviewed. Review of Systems Except as stated in HPI: all other systems reviewed are Neg Objective Alert: Yes [place]: Person, Place Mood: Anxious Affect: Labile Memory Intact: Immediate (not tested) Hallucinations: Auditory (denies) Delusions: No Delusion Type: Paranoid (possible delusion that she was robbed, unable to verify) Suicidal: Ideation (denies) Homicidal: Ideation (denies) Insight/Judgment Impaired Labs Date/Time Procedure Status Source Growth 11/30/16 17:10 Urine Culture - Final Complete Urine Clean Catch 50-100,000 CFU/ML MIXED GRAM POSITIVE... Vitals/IOs Vital Signs Date Time Temp Pulse Resp B/P Pulse Ox O2 Delivery O2 Flow Rate FiO2 12/02/16 06:12 97.1 57 18 114/66 12/01/16 18:26 99 11/28/16 13:00 Room Air Assessment & Plan Problem List: (1) Schizoaffective disorder, bipolar type ICD Code: F25.0 Assessment & Plan Estimated LOS: days this physician believes the patient requires more time on antipsychotic therapy. Justification for Cont. Inpt. Likely to decompensate at lower level of care. Ryder Omalley MD Dec 02, 2016 12:54
[2016-12-02] MEDS: hydrOXYzine HCL 50 MG TAB PO PRN (15:01)
[2016-12-02] MEDS ORDERED: HALOPERIDOL LACTATE 5 MG/ML AMP ONE (15:58)
[2016-12-02] MEDS ORDERED: diphenhydrAMINE HCL 50 MG/ML VIAL IM ONE (16:15)
[2016-12-02] MEDS ORDERED: HALOPERIDOL LACTATE 5 MG/ML AMP IM ONE (16:15)
[2016-12-02 18:57] VITALS: BP 133/75; PULSE 72; RESP 19; TEMP 98.2; O2SAT 98
[2016-12-02] MEDS: LORazepam 1 MG TAB PO PRN (20:22)
[2016-12-02] MEDS: traZODone HCL 50 MG TAB PO PRN (20:22)
[2016-12-02] MEDS: ARIPiprazole 5 MG TAB PO SCH (20:22)
[2016-12-03] MEDS: LEVOTHYROXINE SODIUM 112 MCG TAB PO SCH (05:35)
[2016-12-03] MEDS: LEVOTHYROXINE SODIUM 25 MCG TAB PO SCH (05:35)
[2016-12-03 05:50] VITALS: BP 123/67; PULSE 58; RESP 18; TEMP 97.6; O2SAT 98
[2016-12-03] MEDS: LORazepam 1 MG TAB PO PRN ×2 (09:40→22:23)
--- NOTE | 2016-12-03 12:34 | HHI.PYPN ---
Subjective Remarks Patient continues to be psychotic with paranoid delusions and ideas of reference. She appears to be responding to internal stimuli. This physician feels her Abilify has not been very effective thus far and will increase the dose. Case discussed with nurse and chart reviewed. Review of Systems Except as stated in HPI: all other systems reviewed are Neg Objective Alert: Yes [place]: Person, Place Mood: Anxious Affect: Labile Memory Intact: Immediate (not tested) Hallucinations: Auditory (denies) Delusions: No Delusion Type: Paranoid (possible delusion that she was robbed, unable to verify) Suicidal: Ideation (denies) Homicidal: Ideation (denies) Insight/Judgment Impaired Labs Date/Time Procedure Status Source Growth 11/30/16 17:10 Urine Culture - Final Complete Urine Clean Catch 50-100,000 CFU/ML MIXED GRAM POSITIVE... Vitals/IOs Vital Signs Date Time Temp Pulse Resp B/P Pulse Ox O2 Delivery O2 Flow Rate FiO2 12/03/16 05:50 97.6 58 18 123/67 98 Assessment & Plan Problem List: (1) Schizoaffective disorder, bipolar type ICD Code: F25.0 Assessment & Plan Estimated LOS: days increase Abilify from 5 mg to 10 mg at bedtime. Continue milieu therapies. Justification for Cont. Inpt. Will decompensate at lower level of care. Ryder Omalley MD Dec 03, 2016 12:33
[2016-12-03 18:35] VITALS: BP 119/72; PULSE 69; RESP 16; TEMP 98.3; O2SAT 98
[2016-12-03] MEDS: traZODone HCL 50 MG TAB PO PRN (21:24)
[2016-12-03] MEDS: ARIPiprazole 10 MG TAB PO SCH (21:24)
[2016-12-03] MEDS: hydrOXYzine HCL 50 MG TAB PO PRN (22:23)
[2016-12-04 06:12] VITALS: BP 128/64; PULSE 59; RESP 18; TEMP 96.8; O2SAT 95
[2016-12-04] MEDS: LEVOTHYROXINE SODIUM 112 MCG TAB PO SCH (06:33)
[2016-12-04] MEDS: LEVOTHYROXINE SODIUM 25 MCG TAB PO SCH (06:33)
--- NOTE | 2016-12-04 12:56 | HHI.PYPN ---
Subjective Remarks Patient seen and examined with counselor and nurse. Chart reviewed. Case discussed with nursing staff reports the patient has been no behavioral problem overnight. On my examination today, patient attributes presenting psychiatric symptoms to a history of TBI. She also says that she was abusing [employer]ry [employer] plant. She minimizes her substance use otherwise and is resistant to pursuing any sort of chem dep evaluation or treatment. She presently denies any SI/HI/ AVH. She says that her aunt and cousin have moved into her house and will be caring for her; counselor confirms that this is so. Patient is therefore requesting discharge. Counselor relates that he has obtained collateral to the effect that patient is chronically mentally ill and substance use disordered with poor insight into both issues and limited engagement with treatment for either in the community; she is reportedly at her chronic baseline. Patient denies side effects from medications and says she will take Abilify, "I guess." No physical complaints. Review of Systems ROS Limitations: Poor Historian Except as stated in HPI: all other systems reviewed are Neg Objective Alert: Yes [place]: Person, Place Mood: Anxious Affect: Blunted Memory Intact: Comment (Not formally assessed) Hallucinations: Other (Denies AVH) Delusions: No Delusion Type: Other (No [place] delusions) Suicidal: Ideation (Denies SI) Homicidal: Ideation (Denies HI) Insight/Judgment Poor, perhaps chronically so. Remarks No motor abnormalities noted. Thought process circumstantial. Grooming and hygiene fair. Labs Date/Time Procedure Status Source Growth 11/30/16 17:10 Urine Culture - Final Complete Urine Clean Catch 50-100,000 CFU/ML MIXED GRAM POSITIVE... Labs reviewed. Elevated but decreasing TSH noted. Elevated CK noted. Urine toxicology results noted. Urine culture reveals only mixed elysia. Vitals/IOs Vital Signs Date Time Temp Pulse Resp B/P Pulse Ox O2 Delivery O2 Flow Rate FiO2 12/04/16 06:12 96.8 59 18 128/64 95 Assessment & Plan Problem List: (1) Schizoaffective disorder, bipolar type ICD Code: F25.0 Assessment & Plan Continue Abilify as ordered, dose just increased yesterday evening. Check CK, CMP in morning to trend. Continue to monitor on the inpatient unit. Continue other medications and care as ordered. Justification for Cont. Inpt. Risk for decompensation. Discharge Planning Possible discharge home with family tomorrow. Wu Del Angel MD Dec 04, 2016 12:56
[2016-12-04 17:09] VITALS: BP 137/76; PULSE 67; RESP 18; TEMP 97.5; O2SAT 97
[2016-12-04] MEDS: traZODone HCL 50 MG TAB PO PRN (21:01)
[2016-12-04] MEDS: ARIPiprazole 10 MG TAB PO SCH (21:01)
[2016-12-04] MEDS: diphenhydrAMINE HCL 50 MG CAP PO PRN (21:01)
[2016-12-04] MEDS: LORazepam 1 MG TAB PO PRN (23:36)
[2016-12-04] MEDS: hydrOXYzine HCL 50 MG TAB PO PRN (23:36)
[2016-12-05 05:21] VITALS: BP 119/57; PULSE 60; RESP 18; TEMP 97.8; O2SAT 97
[2016-12-05] MEDS: LEVOTHYROXINE SODIUM 25 MCG TAB PO SCH (06:32)
[2016-12-05] MEDS: LEVOTHYROXINE SODIUM 112 MCG TAB PO SCH (06:32)
[2016-12-05 10:19] LABS: ALKALINE PHOSPHATASE 68 U/L (45-117); ALT (GPT) 50 U/L (10-53); ANION GAP 4 MEQ/L (5-15); AST (GOT) 71 U/L (15-37); BLOOD UREA NITROGEN 16 MG/DL (7-18); CHLORIDE 105 MEQ/L (98-107); CREATINE KINASE 722 U/L (26-192); GLOMERULAR FILTRATION RATE 71 ML/MIN (>89); SODIUM (NA) 139 MEQ/L (136-145); TOTAL BILIRUBIN ADULT 0.4 MG/DL (0.2-1.0)
[2016-12-05 10:33] LABS: POTASSIUM 4.9 MEQ/L (3.5-5.1)
[2016-12-05] MEDS ORDERED: SYNT112T PO (13:54)
[2016-12-05] MEDS ORDERED: LEVO25TA4 PO (13:54)
[2016-12-05] MEDS ORDERED: ARIP1TAB12 PO (13:54)
--- NOTE | 2016-12-05 13:55 | HHI.DS ---
Psychiatry Discharge Summary Inpatient Psychiatric care?: Yes Advance Directive: No Mental Health AdvanceDirective: No Health Care Proxy: No Admission Admission Date Nov 28, 2016 at 13:37 Admission Diagnosis: (1) Schizoaffective disorder, bipolar type ICD Code: F25.0 Brief History Patient evaluated by this physician yesterday. She is grossly psychotic, disorganized, easily and highly agitated, uncooperative and demonstrating severe loose associations. She apparently left her home in the middle of the night, naked. She is paranoid that others are attempting to nikki her and persecute her in her neighborhood. At this time, the patient is being admitted because she is physically and verbally threatening to this physician. She is nonsensical in her speech because her loose associations are so severe. She is making very poor choices by leaving her house naked. She is an extremely poor historian but apparently she is noncompliant with medications prescribed to her by [place] act. Tobacco Use In Past 30 Days: No Tobacco Past 30 Days Alcohol Use: Never Hospital Course Patient was admitted to a locked, inpatient psychiatric unit. A general medical consultation was obtained. Appropriate precautions were in place throughout patient's hospital stay. Patient was seen and examined daily on the unit by psychiatry and also visited by counselor. Psychotropic medications were adjusted. Patient tolerated medications well without side effects. Behavior improved with the benefit of psychopharmacologic treatment. There was no evidence of any suicidality or homicidality on the inpatient unit. On the day of discharge: Patient seen and examined with nurse. Chart reviewed. Case discussed with nursing staff. No behavioral issues noted overnight. On my examination today, the patient is requesting discharge from the inpatient psychiatric unit. She denies any suicidal or homicidal ideation, intent or plan. She denies any issues with mood and I can elicit no depressive or hypomanic/manic symptoms at this time. She denies any audiovisual hallucinations I can elicit no delusional material. She denies any side effects from medications. She has no physical complaints. Weighing the relevant factors and based on the available evidence, I adult live in caregiver to a reasonable degree of medical certainty that the patient does not at present meet criteria for ongoing involuntary psychiatric hospitalization inasmuch as she does not at this time represent an imminent risk of harm to self or others nor is there any evidence of significant functional impairment. Given that she is requesting discharge from the inpatient psychiatric unit today, I must therefore arrange for her discharge with psychiatric follow-up as arranged by counselor. Patient is also to follow-up with primary care. I counseled the patient regarding warning signs for need to return to the psychiatric emergency room as part of the general safety plan. I counseled the patient to abstain from substances of abuse. Results Blood Pressure 119 / 57 Vital Signs Date Time Temp Pulse Resp B/P Pulse Ox O2 Delivery O2 Flow Rate FiO2 12/05/16 05:21 97.8 60 18 119/57 97 Laboratory Tests Test 12/05/16 08:40 Anion Gap 4 MEQ/L (5-15) Estimat Glomerular Filtration 71 ML/MIN (>89) Rate Aspartate Amino Transf 71 U/L (15-37) (AST/SGOT) Total Creatine Kinase 722 U/L (26-192) Summary of Procedures None done Imaging None done Pending results at discharge: No Medications # of Antipsychotic meds at D/C: 1 Approp Antipsych med options 1 - Minimum of three failed multiple trials of monotherapy. 2 - Documented plan to taper to monotherapy due to previous use of multiple meds OR cross-taper in progress at D/C. 3 - Documentation of augmentation of Clozapine. 4 - Justification other than those listed in allowable values 1-3, document here : Discharge Discharge Date: Dec 05, 2016 Discharge Diagnosis: (1) Schizoaffective disorder, bipolar type Diagnosis: Principal (stabilized) ICD Code: F25.0 GAF on discharge is 55. Mental Status Exam at Disch Patient is in hospital gown. She is fairly well groomed and maintaining basic hygiene. She is awake and alert and oriented to person and hospital at least. No evidence of delirium. No motor abnormalities noted. Speech is within normal limits for rate, tone and volume. Mood is fair and affect is full and reactive. Thought process fairly linear. No loosening of associations. No evident delusions. Denies audiovisual hallucinations. Denies suicidal or homicidal ideation, intent or plan. Insight and judgment are fair to poor at best, likely patient's chronic condition. Pt Condition on Discharge: Stable Discharge Disposition: Discharge Home Discharge Instructions Diet Instructions: As Tolerated, No Restrictions Activities you can perform: Weight Bearing as Zoey Scheduled Appointment: as per counselor's notes New Orders: BASIC METABOLIC PROF - 1 Week CREATININE KINASE - 1 Week TSH 3RD GEN - 4 Weeks New Medications: Aripiprazole (Aripiprazole) 10 Mg Tab 10 MG PO HS Mental Health Days 15 Ref 1 TAB Levothyroxine (Levothyroxine) 25 Mcg Tab 25 MCG PO DAILY@0600 Thyroid Days 15 Ref 1 TAB Levothyroxine (Synthroid) 112 Mcg Tab 112 MCG PO DAILY@0600 Thyroid Days 15 Ref 1 TAB Discontinued Medications: Buspirone (Buspirone) 30 Mg Tab 30 MG PO BID Anxiety Ref 0 TAB Hydroxyzine Pamoate (Hydroxyzine Pamoate) 100 Mg Cap 100 MG PO TID Ref 0 CAP Imipramine HCL (Tofranil) 50 Mg Tab 75 MG PO HS Control Depression Ref 0 TAB Perphenazine (Perphenazine) 2 Mg Tab 4 MG PO Q12HR #60 Ref 0 TAB Discharge Time <= 30 minutes Discharge/Advance Care Plan Health Problems: (1) Schizoaffective disorder, bipolar type Goals to promote your health * To prevent worsening of your condition and complications * To maintain your health at the optimal level Directions to meet your goals Take your medications as prescribed Follow your dietary instruction Follow activity as directed Keep your appointments as scheduled Take your immunizations and boosters as scheduled If your symptoms worsen call your PCP, if no PCP go to Urgent Care Center or Emergency Room For 22/12 questions related to your inpatient stay or results of tests pending at discharge, please contact Dr. Wu Del Angel at Smoking is Dangerous to Your Health. Avoid second hand smoking Wu Del Angel MD Dec 05, 2016 13:55
== END 2016-12-05 17:10 | disposition home or self-care (01) | DRG 885 ==
LOC: NEPC 04:13 → NEDA 13:37 → EDBD 13:37 → H270 14:05
PROVIDERS: ADMIT Psychiatry & Neurology Psychiatry; ATTEND Psychiatry & Neurology Psychiatry
DX: F25.0 Schizoaffective disorder, bipolar type (principal); N17.9 Acute kidney failure, unspecified; Z91.14 Patient's other noncompliance with medication regimen; Z91.19 Patient's noncompliance with other medical treatment and regimen; N39.0 Urinary tract infection, site not specified; F14.10 Cocaine abuse, uncomplicated; E03.9 Hypothyroidism, unspecified; B37.9 Candidiasis, unspecified; F17.210 Nicotine dependence, cigarettes, uncomplicated; F12.90 Cannabis use, unspecified, uncomplicated; Z83.3 Family history of diabetes mellitus
CPT/HCPCS: 80053; 80061; 80307; 81001; 82306; 82533; 82550; 82552; 82607; 83036; 84439; 84443; 84481; 84703; 85025; 87086; 96372; J0696; J1200; J1630; J2060; J3486; Q0163